=== PATIENT | female | born 1980 | race Caucasian/White ===

== ENCOUNTER 2020-10-03 16:35 | Emergency (ER) | payer OTHER ==
[~2020-10-03] VITALS: Ht 177.8 cm; Wt 62.1 kg
--- NOTE | 2020-10-03 16:56 | NUR ---
Dr Huffman at bedside for MSE.
[2020-10-03 18:00] LABS: *URINE HCG, QUAL NEGATIVE (NEGATIVE)
[2020-10-03] MEDS: KETOROLAC TROMETHAMINE 30 MG INJ IM ONE (18:05)
--- NOTE | 2020-10-03 18:05 | NUR ---
Pt is not , will administer Toradol as ordered.
[2020-10-03] MEDS: LIDOCAINE 5% PATCH TD ONE (18:10)
[2020-10-03] MEDS ORDERED: KETOROLAC TROMETHAMINE 30 MG INJ ONE (18:12)
[2020-10-03] MEDS ORDERED: LIDOCAINE 5% PATCH TD ONE (18:12)
[2020-10-03] MEDS ORDERED: LIDO30AD10 TD (18:38)
[2020-10-03] MEDS ORDERED: NAPR-1164 PO (18:38)
[2020-10-03] MEDS ORDERED: CYCL5TAB PO (18:38)
--- NOTE | 2020-10-03 18:53 | NUR ---
Pt verbalized feeling better. Patient discharged to home in stable condition. Written and verbal after care instructions given, along with prescriptions. Patient verbalizes understanding of instructions. Stressed follow up or return to ER for worsening s/s. Ambulated out of ED in steady gait.
[2020-10-03 18:54] VITALS: BP 150/80
== END 2020-10-03 18:55 | disposition home or self-care (01) ==
LOC: ER 16:41
DX: S29.011A Strain of muscle and tendon of front wall of thorax, initial encounter (principal); R07.81 Pleurodynia; S21.102A Unspecified open wound of left front wall of thorax without penetration into thoracic cavity, initial encounter; X58.XXXA Exposure to other specified factors, initial encounter; Y92.89 Other specified places as the place of occurrence of the external cause
CPT/HCPCS: 84703; 96372; 99283; J1885; A4663